=== PATIENT | male | born 2000 | race Caucasian/White ===

== ENCOUNTER 2021-04-13 00:20 | Emergency (ER) | payer OTHER ==
[~2021-04-13] VITALS: Ht 167.7 cm; Wt 86.2 kg
[2021-04-13] MEDS ORDERED: RX-CYCLOBENZAPRINE 10 MG (FLEXERIL) TAB PPK#3 PO STA (01:07)
[2021-04-13] MEDS ORDERED: RX-ONDANSETRON 4 MG ODT (ZOFRAN) PPK #4 PO STA (01:07)
[2021-04-13] MEDS ORDERED: CYCL10TA9 PO (01:11)
[2021-04-13] MEDS ORDERED: ONDA4TAB11 PO (01:11)
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
[2021-04-13 01:21] VITALS: BP 153/91
== END 2021-04-13 01:21 | disposition home or self-care (01) ==
LOC: ER 00:24
DX: S06.0X0A Concussion without loss of consciousness, initial encounter (principal); Z71.89 Other specified counseling; V77.6XXA Passenger on bus injured in collision with fixed or stationary object in traffic accident, initial encounter
CPT/HCPCS: 99281